=== PATIENT | female | born 1980 | race Caucasian/White ===

== ENCOUNTER 2022-05-06 19:37 | Emergency (ER) | payer BC ==
--- OUTSIDE RECORDS SUMMARY | 2022-05-06 19:40 | XMS REPORT | Continuity of Care Document ---
:1980 Author Organization [facility] t Address [address] [place] [address] Care Team Providers Name Role Phone Rufino HUSSEIN, Vianca Abdalla Primary Care Physician [phone] ORALIA SHEA Attending Clinician Unavailable LAB90 Attending Clinician Unavailable VIANCA THEODORE Attending Clinician Unavailable MAUREEN CHAVEZ Attending Clinician Unavailable COVID-[facility] [place] Attending Clinician Unavailsandra MAXWELL-[place] Attending Clinician Payers Payer Name Policy Type Policy Number Effective Date Expiration Date S tye BCBS 2 [id number] 2021 00:00:00 Problems Condition Condition Condition Status Onset Resolution Last Treating Co mments Source Name Details Category Date Date Treatment Clinician Date Vitamin D 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 03-10 Se ybold - Not - Not 00:00: - Controlled Controlled 00 Ex terna l Hypothyroi Hypothyroi Disease Active K elsey d d Seybold - Externa l Allergies, Adverse Reactions, Alerts Allergy Allergy Status Severity Reaction(s) Onset Inactive Treating Comm ents Source Name Type Date Date Clinician Penicill Propensi Active Patient Kelse y ins ty to 07-15 was a Seybold adverse 00:00: toddler reaction 00 when it s was given Penicill Propensi Active Patient Kelse y ins ty to 1-14 was a Seybold adverse 00:00: toddler - reaction 00 when it Externa s was given l Social History Social Habit Start Date Stop Date Quantity Comments Source Sex Ass[birth year] At [birth year] F Elle Se ybold - 00:00:00 00:00:00 External Smoking Status Start Date Stop Date Source Never smoked tobacco Elle Seyb old - External Medications Ordered Filled Start Stop Current Ordering Indication Dosage Frequency Signature Comments Components Source Medication Medication Date Date Medication? Clinician (SIG) Name Name Bupropion 2021-07 Yes [id number] 300mg Take 1 K elsey HCL XL 300 0-07 tablet Seybold MG OR TB24 00:00: (300 mg - 00 total) by Externa mouth l daily Doxepin HCl 2021-07 Yes [id number] 30{tbl} Take 30 Elle 3 MG oral 0-07 tablets by Seyb old Tablet 00:00: mouth - 00 nightly Externa l Bupropion 2021- No [id number] 150mg Take 1 Elle HCL XL 150 9-09 10-07 tablet Seybol d MG OR TB24 00:00: 00:00 (150 mg - 00 :00 total) by Externa mouth l daily Phentermine Yes 1{tbl} Take 1 Ke lsey HCl 37.5 MG 8-29 tablet by Sey bold oral Tablet 00:00: mouth - 00 daily Externa l Scopolamine Yes [id number] 1{patch Place 1 Elle (TRANSDERM- 6-21 } patch onto Se ybold SCOP) 1 00:00: the skin - MG/3DAYS 00 every 72 Externa transdermal hours as l PATCH 72 HR needed Euthyrox 0 Yes [id number] Take 1 Jacoby sey 137 MCG 6-20 tablet by Seybold oral Tablet 00:00: mouth once - 00 daily Externa l Valacyclovi 0 Yes [id number] 2000mg Take 2 Elle r HCl 1 g 5-11 tablets Seybold oral Tablet 00:00: (2,000 mg 00 total) by mouth every 12 hours For 2 doses Valacyclovi 2021-0 Yes [id number] 2000mg Take 2 Elle r HCl 1 g 5-11 tablets Seybold oral Tablet 00:00: (2,000 mg - 00 total) by Externa mouth l every 12 hours For 2 doses Levothyroxi Yes [id number] 137ug Take 1 Elle kathrine Sodium 3-16 tablet Seybold 137 MCG 00:00: (137 mcg oral Tablet 00 total) by mouth daily Levothyroxi 2020-07 Yes Elle ne Sodium 0-27 Seybold 137 MCG 00:00: oral Tablet 00 Immunizations Ordered Immunization Filled Immunization Date Status Commen ts Source Name Name Influenza Virus 2022-03-10 Completed Elle Fisher ybold Vaccine, age 8 00:00:00 - External months and up Covid-19 Vaccine 2021-08-22 Completed Elle pennington (Yesweplay), Mrna-lnp, 00:00:00 Lj Protein, Pf, 30mcg/0.3ml,IM Covid-19 Vaccine 2021-08-22 Completed Elle hillsbold (Yesweplay), Mrna-lnp, 00:00:00 - Ext ernal Lj Protein, Pf, 30mcg/0.3ml,IM Covid-19 Vaccine 2020-09-23 Completed Elle pennington (Moderna), Mrna-lnp, 00:00:00 Lj Protein, Pf, 100 Mcg/0.5ml,IM Covid-19 Vaccine 2020-09-23 Completed Elle pennington Moderna (Spikevax), 00:00:00 Mrna-lnp, Lj Protein, Pf Covid-19 Vaccine 2020-09-23 Completed Elle pennington Moderna (Spikevax), 00:00:00 - Ext ernal Mrna-lnp, Lj Protein, Pf Covid-19 Vaccine 2020-08-26 Completed Elle pennington (Moderna), Mrna-lnp, 00:00:00 Lj Protein, Pf, 100 Mcg/0.5ml,IM Covid-19 Vaccine 2020-08-26 Completed Elle pennington Moderna (Spikevax), 00:00:00 Mrna-lnp, Lj Protein, Pf Covid-19 Vaccine 2020-08-26 Completed Elle pennington Moderna (Spikevax), 00:00:00 - Ext ernal Mrna-lnp, Lj Protein, Pf Vital Signs Vital Name Observation Time Observation Value Comments Source Systolic blood 2022-04-07 13:08:00 102 mm[Hg] Elle Seybold - pressure External Diastolic blood 2022-04-07 13:08:00 64 mm[Hg] Kelse y Seybold - pressure External Heart rate 2022-04-07 13:08:00 72 /min Elle Dye eybold - External Body temperature 2022-04-07 13:08:00 37.11 Jennifer Tyra ey Seybold - External Body weight 2022-04-07 13:08:00 88.905 kg Elle Dye eybold - External BMI 2022-04-07 13:08:00 27.34 kg/m2 Elle S eybold - External Systolic blood 2021-07-15 14:59:00 100 mm[Hg] Elle Seybold pressure Diastolic blood 2021-07-15 14:59:00 66 mm[Hg] Kelse y Seybold pressure Heart rate 2021-07-15 14:59:00 66 /min Elle Dye eybold Body temperature 2021-07-15 14:59:00 36.56 Jennifer Tyra ey Seybold Respiratory rate 2021-07-15 14:59:00 16 /min Tyra ey Seybold Body height 2021-07-15 14:59:00 180.3 cm Elle Dye eybold Body weight 2021-07-15 14:59:00 99.338 kg Elle Dye eybold BMI 2021-07-15 14:59:00 30.54 kg/m2 Elle hillsbomayito Procedures This patient has no known procedures. Encounters Start End Encounter Admission Attending Care Care Encounter Source Date/Time Date/Time Type Type Clinicians Facility Department ID 2022-05-05 2022-05-05 Outpatient ELLE SHEA [id number] Elle 08:00:00 08:00:00 ORALIA Seybol d 2022-04-13 2022-04-13 Outpatient ELLE SHEA [id number] Elle 00:00:00 00:00:00 ORALAI Seybol d 2022-04-12 2022-04-12 Outpatient ELLE SHEA [id number] Elle 00:00:00 00:00:00 ORALIA Seybol d 2022-04-072022-04-07 Outpatient LAB90 ELLE WEBSTER [id number] Elle 08:45:00 08:45:00 Seybol d 2022-04-07 2022-04-07 Outpatient SHABBIR ELLE WEBSTER [id number] Elle 08:00:00 08:00:00 ORALIA Seybol d 2022-03-10 2022-03-10 Office Galo SHEA [id number] Elle 15:00:00 15:00:00 Visit ORALIA Rogelio [id number] Se ybold [id number] 2022-02-28 2022-02-28 Outpatient SHABBIR ELLE WEBSTER [id number] Elle 00:00:00 00:00:00 ORALIA Seybol d 2021 2021 Outpatient BYRONBlane ELLE WEBSTER [id number] Elle 00:00:00 00:00:00 ORALIA Seybol d 2021-11-09 2021-11-09 Telemedici Galo THEODORE [id number] Elle 13:30:00 13:30:00 kathrine VIANCA Rogelio [id number] Se ybold [id number] 2021-09-14 2021-09-14 Outpatient ELLE CHAVEZ [id number] Elle 00:00:00 00:00:00 MAUREEN Seybol d 2021-08-22 2021-08-22 Outpatient COVID-PFIZE ELLE WEBSTER [id number] Elle 10:00:00 10:00:00 R VACC, Seybol d SANDS 2021-08-22 2021-08-22 Outpatient LAB90 ELLE WEBSTER [id number] Elle 08:35:00 08:35:00 Seybol d 2021-08-09 2021-08-09 Outpatient ELLE SHEA [id number] Elle 00:00:00 00:00:00 ORALIA Seybol d 2021-07-15 2021-07-15 Office Galo Shea [id number] Elle 09:00:00 09:30:00 Visit Oralia Rogelio [id number] Se dallingayle [id number] Results This patient has no known results.
[2022-05-06] MEDS ORDERED: LIDOCAINE 1% MPF 5 ML VIAL ONE (20:35)
--- NOTE | 2022-05-06 21:02 | EDPHYS ---
Physician Documentation [facility] Name: Alie Mcknight Age: 41 yrs Sex: Female : 1980 Arrival Date: 05/06/2022 Time: 19:40 Bed 11 Private MD: ED Physician Brendon Rojo HPI: 05/06 21:49 This 41 yrs old Female presents to ER via Ambulatory with complaints of Laceration - kb finger. 21:49 The patient has a laceration related to: cutting cheese with a knife and it slipped kb occurred at home, and there are no complicating factors. The injury was accidental. The laceration(s) is(are) located on the palmar aspect of distal phalanx of left index finger. Onset: The symptoms/episode began/occurred just prior to arrival. Associated signs and symptoms: The patient has no apparent associated signs or symptoms. The patient has not experienced similar symptoms in the past. The patient has not recently seen a physician. 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 - Social history:: Smoking status: Patient denies any tobacco usage or history of. ROS: 21:48 Constitutional: Negative for fever, chills, and weight loss. kb 21:48 Skin: Positive for laceration(s), of the palmar aspect of distal phalanx of left index finger. 21:48 All other systems are negative. Exam: 21:49 Constitutional: This is a well developed, well nourished patient who is awake, alert, kb and in no acute distress. Head/Face: Normocephalic, atraumatic. ENT: Moist Mucous membranes Cardiovascular: Regular rate and rhythm with a normal S1 and S2. No gallops, murmurs, or rubs. No pulse deficits. Respiratory: Respirations even and unlabored. No increased work of breathing. Talking in full sentences Abdomen/GI: Soft, non-tender. No distention MS/ Extremity: Pulses equal, no cyanosis. Neurovascular intact. Full, normal range of motion. Neuro: Awake and alert, GCS 15, oriented to person, place, time, and situation. Moves all extremities. Normal gait. Psych: Awake, alert, with orientation to person, place and time. Behavior, mood, and affect are within normal limits. 21:49 Skin: injury, laceration(s), the wound is approximately 1.5 cm(s), of the palmar aspect of distal phalanx of left index finger, that can be described as clean, no foreign body, linear, without bleeding. Vital Signs: 20:15 BP 125 / 71; Pulse 77; Resp 20; Temp 98.7; Pulse Ox 100% ; Weight 88.45 kg; Height 5 kb3 ft. 11 in. (180.34 cm); Pain 6/10; 21:04 BP 132 / 76; Pulse 82; Resp 18; Pulse Ox 100% on R/A; em6 20:15 Body Mass Index 27.20 (88.45 kg, 180.34 cm) kb3 Laceration: 21:00 Wound Repair of 1.5cm ( 0.6in ) subcutaneous laceration to palmar aspect of distal kb phalanx of left index finger. Linear shaped.. Distal neuro/vascular/tendon intact. Anesthesia: Wound infiltrated with 2 mls of 1% lidocaine. Wound prep: Extensive cleansing with hibiclenz by me, Wound irrigation with saline by me. Skin closed with 4 5-0 Prolene using simple sutures and sterile technique. Patient tolerated well. MDM: 20:10 Patient medically screened. kb 21:00 Data reviewed: vital signs, nurses notes. Data interpreted: Pulse oximetry: on room air kb is 100 %. Interpretation: normal. Counseling: I had a detailed discussion with the patient and/or guardian regarding: the historical points, exam findings, and any diagnostic results supporting the discharge/admit diagnosis, the need for outpatient follow up, a family practitioner, to return to the emergency department if symptoms worsen or persist or if there are any questions or concerns that arise at home. 05/06 20:31 Order name: Dressing - Wound; Complete Time: 21:05 kb 05/06 20:31 Order name: Gloves, Sterile; Complete Time: 20:41 kb 05/06 20:31 Order name: Prolene, Sutures; Complete Time: 20:41 kb 05/06 20:31 Order name: Setup Suture Tray; Complete Time: 20:41 kb Administered Medications: 20:45 Drug: Lidocaine (1 %) 1 vials {Note: admistered by Rogelio MAXWELL .} Volume: 5 ml; Route: em6 Infiltration; 21:05 Follow up: Response: No adverse reaction em6 Disposition: 05/07 06:01 Co-signature as Attending Physician, Brendon Rojo MD I agree with the assessment and kdr plan of care. Disposition Summary: 05/06/22 21:01 Discharge Ordered Location: Home kb Condition: Stable kb Diagnosis - Laceration without foreign body of left index finger without damage to nail kb Followup: kb - With: Emergency Department - When: As needed - Reason: Worsening of condition Followup: kb - With: Private Physician - When: 2 - 3 days - Reason: Recheck today's complaints, Continuance of care, Re-evaluation by your physician Discharge Instructions: - Discharge Summary Sheet kb - Laceration Care, Adult, [id number] kb Forms: - Medication Reconciliation Form kb - Thank You Letter kb - Antibiotic Education kb - Prescription Opioid Use kb Signatures: Abena Mercado FNP-C FNP-Brendon Bates MD MD kdr Alie Miller, RN RN em6 Palmira Cole RN RN kb3
--- NOTE | 2022-05-06 21:02 | ER ---
Nurse's Notes [facility] Name: Alie Mcknight Age: 41 yrs Sex: Female : 1980 Arrival Date: 05/06/2022 Time: 19:40 Bed 11 Private MD: Diagnosis: Laceration without foreign body of left index finger without damage to nail Presentation: 05/06 20:15 Chief complaint: Patient states: Pt reports laceration to left index finger that kb3 occurred while cutting cheese just prior to arrival. Coronavirus screen: Vaccine status: Patient reports receiving the 2nd dose of the covid vaccine. Client denies travel out of the [place] in the last 14 days. Ebola Screen: Patient negative for fever greater than or equal to 101.5 degrees Fahrenheit, and additional compatible Ebola Virus Disease symptoms Patient denies exposure to infectious person. Patient denies travel to an Ebola-affected area in the 21 days before illness onset. Complicating Factors: There are no complicating factors for this patient. Initial Sepsis Screen: Does the patient meet any 2 criteria? No. Patient's initial sepsis screen is negative. Does the patient have a suspected source of infection? No. Patient's initial sepsis screen is negative. Risk Assessment: Do you want to hurt yourself or someone else? Patient reports no desire to harm self or others. Onset of symptoms was May 06, 2022 at 19:15. 20:15 Method Of Arrival: Ambulatory kb3 20:15 Acuity: CINTHIA 4 kb3 Triage Assessment: 20:16 General: Appears in no apparent distress. Behavior is calm, cooperative. Pain: kb3 Complains of pain in dorsal aspect of middle phalanx of left index finger and palmar aspect of middle phalanx of left index finger Pain does not radiate. Pain currently is 6 out of 10 on a pain scale. Quality of pain is described as burning. Injury Description: Laceration sustained to dorsal aspect of middle phalanx of left index finger and palmar aspect of middle phalanx of left index finger is 0.5 to 2.5 cm long, bleeding moderately, is bleeding a small amount. 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 - Social history:: Smoking status: Patient denies any tobacco usage or history of. Screenin:41 Abuse screen: Denies threats or abuse. Nutritional screening: No deficits noted. em6 Tuberculosis screening: No symptoms or risk factors identified. Fall Risk Total Carmichael Fall Scale indicates No Risk (0-24 pts). Assessment: 20:41 General: Appears comfortable, Behavior is cooperative. Pain: Complains of pain in left em6 hand and palmar aspect of middle phalanx of left index finger and dorsal aspect of middle phalanx of left index finger Pain does not radiate. Pain currently is 5 out of 10 on a pain scale. Quality of pain is described as pulsating. Neuro: Level of Consciousness is awake, alert, obeys commands, Oriented to person, place, time, situation. Cardiovascular: Patient's skin is warm and dry. Respiratory: Airway is patent Respiratory effort is even, unlabored, Respiratory pattern is regular, symmetrical. GI: No signs and/or symptoms were reported involving the gastrointestinal system. : No signs and/or symptoms were reported regarding the genitourinary system. EENT: No signs and/or symptoms were reported regarding the EENT system. Derm: No signs and/or symptoms reported regarding the dermatologic system. Musculoskeletal: Circulation, motion, and sensation intact. Range of motion: intact in all extremities. Injury Description: Laceration sustained to left hand and palmar aspect of middle phalanx of left index finger and dorsal aspect of middle phalanx of left index finger is clean, 0.5 to 2.5 cm long, bleeding moderately, was sustained 1-2 hours ago. is bleeding a small amount. Vital Signs: 20:15 BP 125 / 71; Pulse 77; Resp 20; Temp 98.7; Pulse Ox 100% ; Weight 88.45 kg; Height 5 kb3 ft. 11 in. (180.34 cm); Pain 6/10; 21:04 BP 132 / 76; Pulse 82; Resp 18; Pulse Ox 100% on R/A; em6 20:15 Body Mass Index 27.20 (88.45 kg, 180.34 cm) kb3 ED Course: 19:40 Patient arrived in ED. as 19:50 Abena Mercado [facility]-C [facility]. kb 19:50 Brednon Rojo MD is Attending Physician. kb 20:16 Triage completed. kb3 20:16 Arm band placed on right wrist. kb3 20:43 Bed in low position. Call light in reach. Side rails up X 1. Pulse ox on. NIBP on. Warm em6 blanket given. 21:04 Alie Miller, RN is Primary Nurse. em6 21:05 No provider procedures requiring assistance completed. Patient did not have IV access em6 during this emergency room visit. Administered Medications: 20:45 Drug: Lidocaine (1 %) 1 vials {Note: admistered by Rogelio MAXWELL .} Volume: 5 ml; Route: em6 Infiltration; 21:05 Follow up: Response: No adverse reaction em6 Medication: 21:05 VIS not applicable for this client. em6 Outcome: 21:01 Discharge ordered by . kb 21:12 Patient left the ED. em6 Signatures: Abena Mercado FNP-C FNP-Margaret Lofton as Alie Miller, RN RN em6 Palmira Cole, ANGELES RN kb3
[2022-05-06 22:17] VITALS: TEMP 98.7; O2SAT 100
[2022-05-06 22:23] VITALS: BP 132/76
== END 2022-05-06 21:12 | disposition home or self-care (01) ==
LOC: ER 19:37
PROC: 0JQK0ZZ Repair Left Hand Subcutaneous Tissue and Fascia, Open Approach (ICD-10-PCS; principal; 2022-05-06)
DX: S61.211A Laceration without foreign body of left index finger without damage to nail, initial encounter (principal)
CPT/HCPCS: 99283; 12001; J2001